=== PATIENT | female | born 1990 | race Caucasian/White ===

== ENCOUNTER 2018-09-01 18:13 | Emergency (ER) | payer OTHER ==
[~2018-09-01] VITALS: Ht 170.1 cm; Wt 74.8 kg
== END 2018-09-01 18:54 | disposition left against medical advice (07) ==
LOC: ED 18:13
DX: O99.321 Drug use complicating pregnancy, first trimester (principal); F15.10 Other stimulant abuse, uncomplicated; Z3A.00 Weeks of gestation of pregnancy not specified